=== PATIENT | female | born 1980 | race Caucasian/White ===

== ENCOUNTER → 2017-11-17 | Emergency (ER) | payer OTHER ==
[~2017-11-17] VITALS: Ht 142.2 cm; Wt 54.0 kg
[~2017-11-17] MED LIST: IBUPROFEN800 MG PO; PEPCID40 MG PO; PERCOCET 5/3251 TAB PO; PHENERGAN25 MG PO; PRENATAL TABLE1 EAC1 PO; SURFAK240 M1 PO
== END | disposition home or self-care (01) ==
LOC: ER 16:19
DX: R42 Dizziness and giddiness (principal)

== ENCOUNTER 2025-04-16 06:58 | Emergency (ER) | payer OTHER ==
[~2025-04-16] VITALS: Ht 142.2 cm; Wt 68.5 kg
[2025-04-16] MEDS ORDERED: METOPROLOL SUCC25 MG PO (07:14)
[2025-04-16] MEDS ORDERED: LOSARTAN POTASS25 MG PO (07:14)
[2025-04-16] MEDS ORDERED: LOPERAMIDE HCL 2 MG CAPSULE PO ONE (08:45)
[2025-04-16] MEDS ORDERED: FAMOTIDINE/PF 20 MG/2 ML VIAL IV PUSH ONE (08:45)
[2025-04-16] MEDS ORDERED: HYOSCYAMINE SULFATE 0.125 MG TAB.SUBL SL ONE (08:45)
[2025-04-16 09:47] LABS: EOS # 0.02 (0.04-0.54); EOS % 0.5 % (0.7-7.0); HEMATOCRIT 44.2 % (34.1-44.9); HEMOGLOBIN 14.9 g/dL (11.2-15.7); LYMPH # 1.28 (1.18-3.74); LYMPH % 30.7 % (19.3-53.1); MEAN CORPUSCULAR HEMOGLOBIN 31.2 pg (25.6-32.2); MONO # 0.41 (0.24-0.82); MONO % 9.8 % (4.7-12.5); NEUT # 2.42 (1.56-6.13); PLATELET COUNT 296 K/uL (163-369); RED BLOOD COUNT 4.77 M/uL (3.93-5.22)
[2025-04-16 10:45] LABS: PH,URINE 5.5 (5.0-8.0); URINE APPEARANCE Clear; URINE BILIRRUBIN Negative (NEGATIVE); URINE BLOOD Negative; URINE COLOR Yellow; URINE GLUCOSE Negative (NEGATIVE); URINE KETONE Trace (NEGATIVE); URINE LEUKOCYTE Negative; URINE NITRATE Negative; URINE PROTEIN Negative (NEGATIVE); URINE UROBILINOGEN 0.2 E.U./dl
[2025-04-16 10:48] LABS: URINE BACTERIA 53.8 uL (0.0-1933); URINE EPITHELIAL CELLS 2.9 uL (0.0-38.8); URINE RBC 3.9 uL (0.0-20.8); URINE WBC 2.8 uL (0.0-23.2)
[2025-04-16 10:54] LABS: URINE CAST 0.44 uL (0.0-1.40)
[2025-04-16 10:55] LABS: ALBUMIN 3.9 gm/dL (3.4-5.0); BILIRUBIN TOTAL 0.69 mg/dL (0.3-1.2); BILIRUBIN,CONJUGATED 0.19 mg/dL (0.0-0.2); BILIRUBIN,UNCONJUGATED 0.5 mg/dL (0.0-0.6); CALCIUM 9.3 mg/dL (8.5-10.1); CREATININE SERUM 0.91 mg/dL (0.55-1.02); GFR 67.16; GLOBULINA 3.9 G/DL (2.4-3.5); POTASSIUM 4.21 mEq/L (3.5-5.1); TOTAL PROTEIN 7.8 gm/dL (6.4-8.2)
[2025-04-16] MEDS ORDERED: LACTOBACILLUS ACIDOPHILUS 1 CAP CAP PO ONE (12:30)
== END 2025-04-16 13:10 | disposition home or self-care (01) ==
LOC: ER 06:58
PROVIDERS: Emergency Medicine
DX: R10.9 Unspecified abdominal pain (principal); K31.9 Disease of stomach and duodenum, unspecified; R10.13 Epigastric pain; I10 Essential (primary) hypertension